=== PATIENT | male | born 1940 | race Caucasian/White ===

== ENCOUNTER 2017-07-12 18:47 | Inpatient (IN) | payer MEDICARE, BC ==
[2017-07-12] MEDS ORDERED: Acetaminophen 500 MG TAB ONE (18:57)
[2017-07-12 19:16] LABS: Hematocrit 44.2 % (42.0-52.0); Red Blood Cell (RBC) Count 4.47 mill/uL (4.70-6.10); White Blood Cell (WBC) Count 10.5 thou/uL (4.8-10.8)
[2017-07-12 19:17] LABS: #Basophils 0.1 thou/uL (0.0-0.2); #Eosinphils 0.1 thou/uL (0.0-0.7); #Lymphocytes 0.7 thou/uL (1.20-3.40); #Monocytes 0.3 thou/uL (0.11-0.59); #Neutrophils 9.3 thou/uL (1.40-6.50); %Basophils 0.7 % (0.0-1.0); %Eosinophils 0.9 % (0.0-10.0); %Lymphocytes 6.6 % (21.0-51.0); %Monocytes 2.9 % (0.0-10.0); Mean Platelet Volume 8.6 fL (7.4-10.4)
--- NOTE | 2017-07-12 19:17 | RAD ---
AP CHEST: History: Fever, cough, congestion for two weeks. Comparison: 08-22-14 IMPRESSION: There is airspace opacity seen within the right lower lobe and right middle lobe suspicious for pneu monia. The left lung is clear. Vascular calcification involving the aortic arch is similar. Osseous structures are similar. Recommend radiographic follow up to resolution. POS: [facility]
[2017-07-12] MEDS ORDERED: cefTRIAXone\\ROCEPHIN 2 GM VIAL ONE (19:25)
[2017-07-12 19:33] LABS: ALT (SGPT) 19 U/L (8-55); AST (SGOT) 26 U/L (5-34); Alkaline Phosphatase 56 U/L (40-150); Anion Gap 15 mmol/L (10-20); BUN (Urea Nitrogen) 13 mg/dL (8.4-25.7); Bilirubin, Total 0.9 mg/dL (0.2-1.2); Calc. Creatinine Clearance 0 mL/min (70-130); Calcium 9.2 mg/dL (7.8-10.44); Carbon Dioxide 21 mmol/L (23-31); Chloride 107 mmol/L (98-107); Estimated GFR-MDRD 66; Globulin 3.6 g/dL (2.4-3.5); Protein, Total 7.6 g/dL (5.8-8.1)
[2017-07-12] MEDS ORDERED: Azithromycin 500 MG VIAL ONE (19:40)
[2017-07-12 19:41] LABS: Lactic Acid - Sepsis 1.3 mmol/L (0.5-2.2)
[2017-07-12] MEDS ORDERED: Acetaminophen 325 MG TAB PO PRN ×2 (21:25→21:55)
[2017-07-12] MEDS ORDERED: Sodium Chloride 0.9% 1,000 ML IV SCH (21:25)
[2017-07-12] MEDS ORDERED: Nitroglycerin 0.4 MG TAB (25 Tab Bottle) SL PRN (21:55)
[2017-07-12] MEDS ORDERED: Loratadine 10 MG TAB PO PRN (21:55)
[2017-07-12] MEDS ORDERED: Benzonatate 100 MG CAP PO PRN (21:55)
[2017-07-12] MEDS ORDERED: HYDROcodone/Acetaminophen 5/325 mg Tablet PO PRN (21:55)
[2017-07-12] MEDS ORDERED: Mag-Al 1200 mg/1200 mg/30 ML UDCUP PO PRN (21:55)
[2017-07-12] MEDS ORDERED: cloNIDine 0.1 MG TAB PO PRN (21:55)
[2017-07-12] MEDS ORDERED: traMADol HCl 50 MG TAB PO PRN (21:55)
[2017-07-12] MEDS ORDERED: hydrALAZINE 20 MG/ML VIAL SLOW IVP PRN (21:55)
[2017-07-12] MEDS ORDERED: Calcium Carbonate 500 MG ChewTAB PO PRN (21:55)
[2017-07-12] MEDS ORDERED: Bisacodyl 5 MG TAB PO PRN ×2 (21:55)
[2017-07-12] MEDS ORDERED: Ondansetron HCl/PF 4 MG/2 ML Vial IVP PRN (21:55)
[2017-07-12] MEDS ORDERED: Lorazepam 1 MG TAB PO PRN (21:55)
[2017-07-12] MEDS ORDERED: Diabetic Tussin 200 MG/10 ML UDCUP PO PRN (21:55)
[2017-07-12] MEDS ORDERED: Senokot 8.6 MG TAB PO PRN ×2 (21:55)
[2017-07-12 23:00] VITALS: BMI 24.9
--- NOTE | 2017-07-13 02:10 | HP ---
DATE OF ADMISSION: 07/12/2017 PRIMARY CARE PHYSICIAN: Nicola Farooq MD CHIEF COMPLAINT: Fever and malaise. HISTORY OF PRESENT ILLNESS: Mr. Drew is a very pleasant very pleasant 76-year-old male with past me dical history of high blood pressure and dyslipidemia who presented to the [place] [facility] with t he above-mentioned complaint. History is mainly obtained by the patient himself and electronic [facility] records have been reviewed. The patient reports that he has been having cough and congestion fo r the last 2 weeks, but it is getting worse over the last day or so. He has been feeling very poorl y for the last 2 or 3 days now and he has started to bring up phlegm with his cough, which is yellow jacky in color. He also noticed some fever and chills this morning and decided that he needs to come in. He also noticed mild shortness of breath with some wheezing, rhinorrhea with green discharge. He denies any sick contacts. He denies any history of similar symptoms in the recent past. He irving es any chest pain, orthopnea, PND, or swelling. No nausea, vomiting, diarrhea, or abdominal pain. No dysuria, frequency, or urgency. Upon presentation to the emergency room, his temperature was 102.6. His oxygen saturation was 90% o n room air and he was tachycardic with a pulse of 136. His blood pressure was 156/90. Chest x-ray done in the emergency room was consistent with pneumonia on the right side. He was treated with IV antibiotics, IV fluids, oxygen, and Tylenol and was transferred to our facility for admission for hy poxia and pneumonia associated with early sepsis. PAST MEDICAL HISTORY: 1. Hypertension. 2. Dyslipidemia. 3. Gout and arthritis. PAST SURGICAL HISTORY: 1. History of right knee surgery. 2. Prostate surgery, 10 years ago. 3. Hernia repair. 4. Tonsillectomy. PSYCHIATRIC HISTORY: No anxiety or depression. SOCIAL HISTORY: He drinks socially twice a month. No history of drug or tobacco abuse. FAMILY HISTORY: No significant family history of premature coronary artery disease or stroke. Some family members with hypertension. ALLERGIES: No known medication allergies. CURRENT MEDICATIONS: Crestor 20 mg daily, allopurinol 150 mg daily, and losartan 25 mg daily. REVIEW OF SYSTEMS: The following complete review of systems was negative, unless otherwise mentione d in the HPI or below: CONSTITUTIONAL: Weight loss or gain, ability to conduct usual activities. SKIN: Rash, itching. EYES: Double vision, pain. ENT/MOUTH: Nose bleeding, neck stiffness, pain, tenderness. CARDIOVASCULAR: Palpitations, dyspnea on exertion, orthopnea. RESPIRATORY: Shortness of breath, wheezing, cough, hemoptysis, fever or night sweats. GASTROINTESTINAL: Poor appetite, abdominal pain, heartburn, nausea, vomiting, constipation, or diar milton. GENITOURINARY: Urgency, frequency, dysuria, nocturia. MUSCULOSKELETAL: Pain, swelling. NEUROLOGIC/PSYCHIATRIC: Anxiety, depression. ALLERGY/IMMUNOLOGIC: Skin rash, bleeding tendency. It is negative except for those mentioned in the history and physical. LABORATORY AND DIAGNOSTIC DATA: His CBC shows WBCs at 10.5 with 88% neutrophils. Otherwise, unrema rkable. Serum chemistries show bicarbonate of 21, blood sugar 117. Lactic acid is 1.3 and influenz a rapid screen is negative. Chest x-ray by my review has evidence of right-sided lower lobe and mid dle lobe opacity consistent with pneumonia by my review. PHYSICAL EXAMINATION: VITAL SIGNS: Most recent T-max is 99.9, pulse 102, respirations 22, saturating 93% on 2 liters oxyg en, blood pressure 113/62. GENERAL: No acute distress, awake, alert, oriented x3, appears nontoxic. HEENT: Mucous membrane is moist and pink. No oropharyngeal exudate or erythema. Head is normoceph alic, atraumatic. Pupils are equal, reactive to light and accommodation. Extraocular movements are intact. NECK: Supple without any lymphadenopathy, JVD, or bruit. CHEST: Shows diffuse rhonchi on the right lung without any wheezing. Breath sounds are somewhat di minished on the right side. Rate and rhythm is regular without any murmur, rubs, or gallops. ABDOMEN: Soft, nontender, nondistended with positive bowel sounds. EXTREMITIES: Free of any cyanosis, clubbing, or edema. NEUROLOGIC: Nonfocal. PSYCHIATRIC: Normal affect, very pleasant. No anxiety noticed. SKIN: Free of any rashes or bruises. Feels warm and dry to touch. VASCULAR: +2 pedal pulses felt bilaterally. IMPRESSION AND PLAN: 1. Community-acquired pneumonia. The patient will be treated with IV antibiotics. He has received azithromycin and Rocephin in the emergency room, and we will continue that for now. Blood cultures have been sent and we will follow the results. He will be continued on gentle intravenous fluids f or possible early sepsis. We did add nebulizers, incentive spirometry, Mucinex, Tessalon Perles as well as QVAR for the hypoxia. 2. Hypertension. We will resume his losartan in the morning. His blood pressure is well controlle d for now. 3. Dyslipidemia. We will resume his home medication of Crestor 10 mg at bedtime. 4. Deep venous thrombosis and gastrointestinal prophylaxis. 5. Code status: FULL CODE. DISPOSITION: The patient is currently being admitted to tele-floor for pneumonia with early sepsis, evident in the form of hypoxia and tachycardia. Further management will depend upon his clinical c ourse. Estimated length of stay at this time is at least 2 to 3 midnights.
[2017-07-13 05:10] LABS: #Eosinphils 0.1 thou/uL (0.0-0.7); #Lymphocytes 1.1 thou/uL (1.20-3.40); #Monocytes 0.8 thou/uL (0.11-0.59); #Neutrophils 13.9 thou/uL (1.40-6.50); %Basophils 0.2 % (0.0-1.0); %Eosinophils 0.4 % (0.0-10.0); %Lymphocytes 7.2 % (21.0-51.0); %Monocytes 5.1 % (0.0-10.0); Hematocrit 39.4 % (42.0-52.0); Mean Platelet Volume 9.3 fL (7.4-10.4); Red Blood Cell (RBC) Count 3.81 mill/uL (4.70-6.10)
[2017-07-13 05:19] LABS: Anion Gap 11 mmol/L (10-20); BUN (Urea Nitrogen) 13 mg/dL (8.4-25.7); Calc. Creatinine Clearance 76 mL/min (70-130); Calcium 8.4 mg/dL (7.8-10.44); Carbon Dioxide 24 mmol/L (23-31); Chloride 109 mmol/L (98-107); Estimated GFR-MDRD 86
[2017-07-13] MEDS: Sodium Chloride 0.9% 1,000 ML IV SCH ×2 (06:40→08:36)
[2017-07-13] MEDS: Mometasone 100 MCG HFA INHALER INH SCH ×2 (06:43→18:38)
[2017-07-13] MEDS: Famotidine 20 MG TAB PO SCH (08:34)
[2017-07-13] MEDS: Losartan 25 MG TAB PO SCH (08:34)
[2017-07-13] MEDS: Calcium Carbonate + Vit D 1 TAB PO SCH (08:34)
[2017-07-13] MEDS: Enoxaparin Sodium 40 MG/0.4 ML SYRINGE SC SCH (08:34)
[2017-07-13] MEDS: Aspirin 81 mg Enteric Coated Tablet PO SCH (08:34)
[2017-07-13] MEDS: guaiFENesin ER 600 MG TAB PO SCH ×2 (08:35→21:17)
[2017-07-13] MEDS ORDERED: PROVENTIL INHALER 6.7 G (200 INHALATIONS) INH SCH (09:00)
[2017-07-13] MEDS ORDERED: FLU VACC TS2017-18 (>65YR) 0.5 ML SYRINGE IM ONE (09:00)
[2017-07-13] MEDS ORDERED: Losartan 25 MG TAB PO SCH (09:00)
--- NOTE | 2017-07-13 11:33 | PDOC.PN ---
- Subjective Encounter Start Date: 07/13/17 Encounter Start Time: 11:31 Mr. Drew says he feels much better. He ambulated in the halls, and did not feel dizzy or weak. He says the cough is much better too. - Objective MAR Reviewed: Yes Vital Signs & Weight: Vital Signs (12 hours) Temp Pulse Resp BP Pulse Ox 07/13/17 08:00 98.2 F 85 14 93 L 07/13/17 07:41 98.2 F 85 14 104/69 93 L 07/13/17 06:43 79 16 96 07/13/17 04:00 97.9 F 88 18 110/67 96 07/13/17 00:43 93 L 07/13/17 00:00 97.5 F L 102 H 22 H 113/62 93 L Weight Weight 164 lb I&O: 07/12/17 07/13/17 07/14/17 06:59 06:59 06:59 Intake Total 784 Balance 784 Result Diagrams: 07/13/17 04:32 07/13/17 04:32 Phys Exam - Physical Examination HEENT: PERRLA + occasional rhonchi, no rales Cardiovascular: RRR, no significant murmur Gastrointestinal: soft, non-tender, positive bowel sounds Musculoskeletal: no edema Dx/Plan (1) Community acquired bacterial pneumonia Code(s): J15.9 - UNSPECIFIED BACTERIAL PNEUMONIA Status: Acute (2) Hypertension Code(s): I10 - ESSENTIAL (PRIMARY) HYPERTENSION Status: Acute (3) Dyslipidemia Code(s): E78.5 - HYPERLIPIDEMIA, UNSPECIFIED Status: Acute (4) Gout Code(s): M10.9 - GOUT, UNSPECIFIED Status: Acute - Plan * Pneumonia- community acquired- he is responding well clinically to Rocephin and Azithromycin * He had an elevation in his WBC count- will therefore keep overnight, and make sure he is trending down before discharge * HTN- blood pressure is stable. * Anticipate discharge home tomorrow
[2017-07-13] MEDS ORDERED: cefTRIAXone\\ROCEPHIN 1 GM in Sodium Chloride 0.9% 100 ML IVPB SCH (19:30)
[2017-07-13] MEDS ORDERED: Azithromycin 500 MG in Sodium Chloride 0.9% 250 ML 250 ML IVPB SCH (20:00)
[2017-07-13] MEDS ORDERED: cefTRIAXone\\ROCEPHIN 1 GM, Syringe 0.4 ML in Sterile Water 9.6 ML SLOW IVP SCH (20:00)
[2017-07-13] MEDS ORDERED: Allopurinol 100 MG TAB PO SCH (21:00)
[2017-07-13] MEDS ORDERED: Amitriptyline HCl 25 MG TAB PO SCH (21:00)
[2017-07-13] MEDS ORDERED: Rosuvastatin 10 MG TAB PO SCH (21:00)
[2017-07-14 05:16] LABS: #Eosinphils 0.6 thou/uL (0.0-0.7); #Lymphocytes 1.6 thou/uL (1.20-3.40); #Monocytes 0.5 thou/uL (0.11-0.59); %Basophils 0.4 % (0.0-1.0); %Eosinophils 6.6 % (0.0-10.0); %Lymphocytes 16.3 % (21.0-51.0); %Monocytes 5.2 % (0.0-10.0); Hematocrit 40.4 % (42.0-52.0); Mean Platelet Volume 9.3 fL (7.4-10.4); Red Blood Cell (RBC) Count 3.85 mill/uL (4.70-6.10); White Blood Cell (WBC) Count 9.7 thou/uL (4.8-10.8)
[2017-07-14] MEDS: Sodium Chloride 0.9% 1,000 ML IV SCH (05:30)
[2017-07-14] MEDS: Mometasone 100 MCG HFA INHALER INH SCH (06:41)
--- NOTE | 2017-07-14 08:05 | PQF ---
CLINICAL DOCUMENTATION IMPROVEMENT CLARIFICATION FORM: ICD-10 Updated PLEASE DO AN ADDENDUM TO THE PROGRESS NOTE WITH ANY DOCUMENTATION UPDATES OR ADDITIONS AND CARRY THROUGH TO DC SUMMARY. THANK YOU. DATE: 07/14 ATTN: DR. INA SHARIF Please exercise your independent, professional judgment in responding to the clarification form. Clinical indicators are provided on the bottom of this form for your review. Please check appropriate box(s): [ X ] Sepsis due to: (Pna, UTI, gangrenous gall bladder, etc.) Pneumonia [ ] Severe sepsis with acute organ dysfunction of: (Examples: respiratory failure, encephalopathy, acute kidney failure, other) [ ] Localized infection without sepsis [ ] Other diagnosis [ ] Unable to determine For continuity of documentation, please document condition throughout progress notes and discharge summary. Thank You. CLINICAL INDICATORS - SIGNS / SYMPTOMS / LABS ER PRESENTATION 07/12: SHORTNESS OF BREATH T: 102.6 RR: 22 HR: 136 RA SAT: 90%, 2L NC: 94% PHYSICIAN H&P DOCUMENTATION 07/12: HX OF PRESENT ILLNESS: ...TRANSFERRED TO OUR FACILITY FOR ADMISSION FOR HYPOXIA & PNEUMONIA ASSOCIATED WITH EARLY SEPSIS. IMPRESSION & PLAN: 1. COMMUNITY ACQUIRED PNEUMONIA. ...HE WILL BE CONTINUED ON GENTLE IVF FOR POSSIBLE EARLY SEPSIS WBC: 10.5 - 16.0 RISK FACTORS COMMUNITY ACQUIRED PNEUMONIA FEVER TREATMENTS: IV ANTIBIOTICS (ZITHROMAX & ROCEPHIN 07/12 - PRESENT) IVF (NS 07/12 - PRESENT) SUPPLEMENTAL OXYGEN THANK YOU! Carmen (This form is maintained as a part of the permanent medical record) 2014 [employer]. All Rights Reserved Carmen Godinez RN, BSN [email or web address] Office: [phone] [facility]
--- NOTE | 2017-07-14 08:16 | PQF ---
CLINICAL DOCUMENTATION IMPROVEMENT CLARIFICATION FORM: ICD-10 Updated PLEASE DO AN ADDENDUM TO THE PROGRESS NOTE WITH ANY DOCUMENTATION UPDATES OR ADDITIONS AND CARRY THROUGH TO DC SUMMARY. THANK YOU. DATE: 07/14 ATTN: DR. INA SHARIF Please exercise your independent, professional judgment in responding to the clarification form. Clinical indicators are provided on the bottom of this form for your review Please check appropriate box(s): [ ] Acute Respiratory Failure: [ ] with Hypoxia [ ] with Hypercapnia [ X ] Acute Respiratory Failure due to: (etiology) Pneumonia __ [ ] Hypoxia [ ] Other diagnosis [ ] Unable to determine For continuity of documentation, please document condition throughout progress notes and discharge summary. Thank You. CLINICAL INDICATORS - SIGNS / SYMPTOMS / LABS ER PRESENTATION 07/12: SHORTNESS OF BREATH RA SAT 90%, PLACED ON 2L NC: 94 % CONVERSES IN SHORT PHRASES, TALKING INDUCES COUGHING SPELLS PHYSICIAN H&P DOCUMENTATION 07/12: HX OF PRESENT ILLNESS: ...WAS TRANSFERRED TO OUR FACILITY FOR ADMISSION FOR HYPOXIA & PNEUMONIA. DISPOSITION: THE PT IS CURRENTLY BEING ADMITTED TO TELE-FLOOR FOR PNEUMONIA W/ EARLY SEPSIS, EVIDENT IN THE FORM OF HYPOXIA & TACHYCARDIA RISK FACTOR: COMMUNITY ACQUIRED PNEUMONIA TREATMENTS: SUPPLEMENTAL OXYGEN MONITORING OXYGENATION STATUS RESPIRATORY TREATMENTS IV ANTIBIOTICS (ROCEPHIN & ZITHROMAX 07/12 - PRESENT) THANK YOU! Carmen (This form is maintained as a part of the permanent medical record) 2014 [employer]. All Rights Reserved Carmen Godinez RN, BSN [email or web address] Office: [phone] [facility]
[2017-07-14] MEDS ORDERED: Cefdinir 300 MG CAP PO SCH (09:00)
[2017-07-14] MEDS: Enoxaparin Sodium 40 MG/0.4 ML SYRINGE SC SCH (09:59)
[2017-07-14] MEDS: Aspirin 81 mg Enteric Coated Tablet PO SCH (09:59)
[2017-07-14] MEDS: Calcium Carbonate + Vit D 1 TAB PO SCH (09:59)
[2017-07-14] MEDS: Losartan 25 MG TAB PO SCH (09:59)
[2017-07-14] MEDS: Famotidine 20 MG TAB PO SCH (10:00)
[2017-07-14] MEDS: guaiFENesin ER 600 MG TAB PO SCH (10:00)
--- NOTE | 2017-07-14 11:15 | DIS ---
PRIMARY CARE PHYSICIAN: Dr. Nicola Montaño DATE OF ADMISSION: 07/12/2017 DATE OF DISCHARGE: 07/14/2017 DISCHARGE DIAGNOSES: 1. Community-acquired pneumonia. 2. Sepsis secondary to community-acquired pneumonia. 3. Acute respiratory failure due to community-acquired pneumonia. CONDITION OF PATIENT AT THE TIME OF DISCHARGE: Stable. I assessed Mr. Drew at the time of discharge. He denies any chest pain or shortness of breath. Cou gh is better. Vital signs are stable. S1 and S2 are heard, regular. Lungs are clear to auscultati on bilaterally. DISCHARGE MEDICATIONS: He has been started on Omnicef 300 mg 2 times a day, 19 more doses, azithrom ycin, Z-ASHLEY to be taken as directed, Tessalon 100 mg 3 times a day as needed. In addition, his home medications were resumed, including allopurinol 100 mg at bedtime, Elavil 12.5 mg at bedtime, aspir in 81 mg daily, calcium carbonate/vitamin D 1 tablet daily, losartan 25 mg daily, and Crestor 10 mg at bedtime. HOSPITAL COURSE: Mr. Drew is a pleasant 76-year-old gentleman who was admitted to [facility] on 07/12/2017 for sepsis and acute respiratory failure secondary to right lower lob e and right middle lobe pneumonia. He improved with intravenous antibiotics and was subsequently st epped down to oral antibiotics. He is being discharged home in a stable condition. He is advised t o follow up with his primary care provider in 3-5 days. Radiologist recommends chest x-ray followup to ensure resolution of the pneumonia. On the day of discharge, Mr. Drew has white count 9700, hemoglobin 13.3, platelet count 137,000. So dium 140, potassium 3.7, creatinine 0.86. Preliminary blood cultures are negative. He is advised to follow up with his primary care physician for a final blood cultures report. Many thanks for allowing me to participate in your patient's care. Please feel free to contact me w ith any questions or concerns. DISCHARGE DESTINATION: Home. TOTAL AMOUNT OF TIME SPENT COORDINATING THIS DISCHARGE: 32 minutes.
[2017-07-14 12:17] VITALS: BP 140/70; TEMP 97.9
== END 2017-07-14 13:37 | disposition home or self-care (01) | DRG 871 ==
LOC: SCSER 18:47 → 2NO 19:35
PROVIDERS: ADMIT Internal Medicine Infectious Disease; ATTEND Internal Medicine Infectious Disease
DX: A41.9 Sepsis, unspecified organism (principal); J18.9 Pneumonia, unspecified organism; J96.01 Acute respiratory failure with hypoxia; I10 Essential (primary) hypertension; E78.5 Hyperlipidemia, unspecified; M10.9 Gout, unspecified; M19.90 Unspecified osteoarthritis, unspecified site
CPT/HCPCS: 36415; 71010; 80048; 80053; 83605; 85025; 87040; 96365; 96375; A4216; J0456; J0696; J1650; J7050

== ENCOUNTER 2017-07-28 10:27 | Outpatient (CLI) | payer MEDICARE, BC ==
--- NOTE | 2017-07-28 15:35 | RAD ---
TWO VIEWS CHEST 07/28/17 CLINICAL HISTORY: Difficulty breathing. Reference made to 07/12/17. FINDINGS: Redemonstration of multiple patchy opacities of the mid to lower right lung zone in a perihilar distr ibution. There is interstitial prominence of each lung. The cardiac silhouette is mildly prominent, s table appearing. Chest is otherwise similar in appearance. There is a nodular density of the left low er lung zone which could relate to a confluence of overlapping structures and was not identified on t he recent comparison exam. IMPRESSION: Redemonstration of multifocal opacification of the right lung, predominantly perihilar in distributio n. This is slightly decreased in confluence and may relate to resolving atypical pneumonia. Followup to complete resolution is recommended. POS: [facility]
== END 2017-07-28 10:28 | disposition home or self-care (01) ==
LOC: SCSRAD 10:27
PROVIDERS: ATTEND Internal Medicine
DX: J18.9 Pneumonia, unspecified organism (principal); R91.8 Other nonspecific abnormal finding of lung field
CPT/HCPCS: 71020

== ENCOUNTER 2022-04-09 08:41 | Outpatient (CLI) | payer MEDICARE, BC | END 2022-04-09 08:42 | disposition home or self-care (01) | LOC: RAD 08:41 | PROVIDERS: ATTEND Otolaryngology Plastic Surgery within the Head & Neck | DX: R13.10 Dysphagia, unspecified (principal); R05.3 Chronic cough | CPT/HCPCS: 74230 ==